=== PATIENT | female | born 1990 | race Caucasian/White ===

== ENCOUNTER → 2017-11-22 | Outpatient (CLI) | payer BC | LOC: FIMAGING 17:08 | PROVIDERS: ATTEND Family Medicine | DX: M25.572 Pain in left ankle and joints of left foot (principal) ==

== ENCOUNTER 2018-07-21 18:59 | Emergency (ER) | payer BC, OTHER ==
--- NOTE | 2018-07-21 19:09 | EDPHY ---
H & P Stated Complaint: R SIDE ABD PAIN FOR PAST 2 DAYS SOME DIARRHEA NO VOMITING Time Seen by Provider: 07/21/18 19:08 HPI/ROS: CHIEF COMPLAINT: RLQ pain HISTORY OF PRESENT ILLNESS: The patient is a 28 y/o female who presents with a 2 -day history of progressive RLQ pain. Pain is worse with movement and walking. She has some mild dysuria, but otherwise denies fever, nausea, vomiting, diarrhea, constipation, recent trauma, recent illness, abnormal vaginal discharge, hematuria, cough, sore throat, dyspnea, chest pain, headaches. She ate dinner a few hours ago and has a normal appetite. Her LMP 3 weeks ago and was normal. No history of abdominal surgeries. REVIEW OF SYSTEMS: A ten system review of systems was performed and is negative with the exception of the items mentioned in the HPI. Past medical history: Denies. On hormonal control. 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 Nonsmoker. Social alcohol use. General Appearance: Alert. Vital signs reviewed. Blood pressure 140/81 triage. Eyes: Pupils equal and round, no conjunctival injection, no discharge. Anicteric. ENT, Mouth: Mucous membranes are moist, no oropharyngeal erythema or edema. Neck: No lymphadenopathy, supple. Respiratory: Lungs are clear to auscultation; no wheezes, rales, or rhonchi. Cardiovascular: Regular rate and rhythm; no murmur, rub, or gallop. Gastrointestinal: Abdomen is soft, mild suprapubic and moderate RLQ tenderness , no masses or organomegaly. Skin: Warm and dry, no rashes on exposed skin, normal color. Back: Nontender to palpation over the thoracolumbar spine. No CVAT. Extremities: No lower extremity edema, no calf tenderness or swelling. Neurological: Alert and oriented. Moving all four extremities easily and equally. Psychiatric: Normal affect. - Personal History LMP (Females 10-55): 22-28 Days Ago Current Tetanus/Diphtheria Vaccine: Yes Current Tetanus Diphtheria and Acellular Pertussis (TDAP): Yes Tetanus Vaccine Date: 2010 - Medical/Surgical History Hx Asthma: Yes Hx Chronic Respiratory Disease: No Hx Diabetes: No Hx Cardiac Disease: No Hx Renal Disease: No Hx Cirrhosis: No Hx Alcoholism: No Hx HIV/AIDS: No Hx Splenectomy or Spleen Trauma: No Other PMH: DENIES - Social History Smoking Status: Never smoked Constitutional: Initial Vital Signs Temperature (C) 37.0 C 07/21/18 19:04 Heart Rate 83 07/21/18 19:04 Respiratory Rate 18 07/21/18 19:04 Blood Pressure 140/81 H 07/21/18 19:04 O2 Sat (%) 100 07/21/18 19:04 O2 Delivery Mode Room Air Allergies/Adverse Reactions: No Known Allergies Allergy (Unverified 07/21/18 19:06) Home Medications: Medication Instructions Recorded Heavenly Control Pills 07/21/18 Medical Decision Making - Diagnostics Imaging: Discussed imaging studies w/ inbound call center representative Radiologist ED Course/Re-evaluation: This is a healthy 28 y/o female who presents with a 2-day history of progressive RLQ pain and mild dysuria. She has RLQ tenderness on exam. History is not completely consistent with appendicitis. Plan for IV, labs, UA, abdominal and pelvic US to evaluate for ovarian cyst vs appendicitis. Abdominal US: negative, normal appendix Pelvic US: complex right involuting ovarian cyst 2055: Reassessed patient and discussed findings. It is possible that the involuting ovarian cyst is the source of her pain. I have not found evidence of appendicitis, ruptured ovarian cyst, /ectopic , urinary tract infection, pyelonephritis. Pain is not consistent with diagnosis of kidney stone. Location of pain is not appropriate for cholecystitis, gastritis , or pancreatitis. Abdominal exam with continued mild tenderness. Labs are unremarkable. Recommended treatment with NSAIDs and PCP follow up as needed. If she has continued pain or if anything changes for the worst I am recommending immediate re-evaluation. She declines pain medication. Return precautions discussed. She is comfortable with plan for discharge. She was noted to be slightly hypertensive in the emergency department. She is advised to have this followed up with her primary care physician. - Data Points Laboratory Results: Laboratory Results 07/21/18 19:21 07/21/18 19:21 Departure - Departure Disposition: Home, Routine, Self-Care Clinical Impression: Ovarian cyst Qualifiers: Laterality: right Qualified Code(s): N83.201 - Unspecified ovarian cyst, right side Condition: Good Instructions: Ovarian Cyst (ED) Additional Instructions: 1. Take ibuprofen as directed for pain over the next few days. 2. Follow up with your primary care provider for unimproved symptoms over the next few days. 3. Return to the ED for severe pain, uncontrollable vomiting or diarrhea, inability to urinate, abnormal vaginal discharge, fever, or other worsening of condition. Adult Pain & Fever Control: We recommend Acetaminophen (Tylenol) and Ibuprofen (Motrin,Advil) for pain and fever control. When fever is high or pain severe, both drugs can be used at the same time, but at different intervals. Please note the time differences. Your dose is: Acetaminophen 650mg every 4 to 6 hours Ibuprofen 600mg every 6-8 hours with food Note: do not take Acetaminophen with Hydrocodone (Vicodin, Lortab) or Oxycodone (Percocet). These medications also contain Acetaminophen. No more than 3000mg of Acetaminophen should be taken in 24 hours (for an adult). Referrals: Gm Robles MD [Primary Care Provider] - As per Instructions Report Scribed for: Trinidad Rodríguez Report Scribed by: Courtney Shin Date of Report: 07/21/18 Time of Report: 19:10 Physician Review and Approval Statement: 07/21/18 19:08 Portions of this note were transcribed by the clinical medical transcriptionist. I, Dr. Trinidad Rodríguez, personally performed the history, physical exam, and medical decision- making; and confirmed the accuracy of the information in the transcribed note.
[2018-07-21 19:39] LABS: PLATELET COUNT 291 10^3/uL (150-400)
[2018-07-21 21:34] VITALS: BP 131/79
== END 2018-07-21 21:32 | disposition home or self-care (01) ==
DX: N83.291 Other ovarian cyst, right side (principal)